=== PATIENT | female | born 1940 | race American Indian/Alaskan Native ===

== ENCOUNTER 2018-02-18 10:04 | Emergency (ER) | payer MEDICARE ==
[2018-02-18 10:50] LABS: Basophils # (Auto) 0.1 K/mm3 (0.0-0.1); Basophils % (Auto) 1.2 % (0.0-1.8); Eosinophils # (Auto) 0.2 K/mm3 (0.0-0.4); Eosinophils % (Auto) 3.7 % (0.0-4.3); Hematocrit 40.5 % (30.3-42.9); Hemoglobin 13.1 gm/dl (10.1-14.3); Lymphocytes # (Auto) 1.1 K/mm3 (1.2-5.4); Lymphocytes % (Auto) 21.8 % (13.4-35.0); Mean Corpuscular HGB Conc 33 % (30-34); Mean Corpuscular Hemoglobin 26 pg (28-32); Mean Corpuscular Volume 80 fl (79-97); Monocytes # (Auto) 0.6 K/mm3 (0.0-0.8); Monocytes % (Auto) 12.8 % (0.0-7.3); Platelet Count 220 K/mm3 (140-440); Red Blood Count 5.05 M/mm3 (3.65-5.03); Red Cell Distribution Width 15.2 % (13.2-15.2)
--- NOTE | 2018-02-18 10:56 | XRay Report ---
ROUTINE CHEST, TWO VIEWS: HISTORY: Right chest pain, right rib pain. The trachea, heart, mediastinal contour, lung cowan and bony thorax are unremarkable. No rib abnormality is detected on x-ray. IMPRESSION: Unremarkable chest x-ray.
[2018-02-18 11:03] LABS: BUN/Creatinine Ratio 18; Blood Urea Nitrogen 14 mg/dL (7-17); Calcium 9.5 mg/dL (8.4-10.2); Hemolysis Index 7
--- NOTE | 2018-02-18 12:40 | Emergency Department Report ---
ED Chest Pain HPI - General Chief Complaint: Chest Pain Stated Complaint: RIGHT SIDED CP Time Seen by Provider: 02/18/18 11:10 Source: patient Mode of arrival: Ambulatory Limitations: No Limitations - History of Present Illness Initial Comments: 77-year-old [place] Citizen female presents to the emergency department with a complaint of some intermittent right-sided chest pain that has since resolved. She says that this has been going on for the past 2 days. There are no known aggravating or alleviating factors. It is not associated with any shortness of breath, nausea, vomiting, back pain or diaphoresis. The patient went to see her primary care physician, Dr. Ashley Haro, regarding her symptoms but was told to come to the emergency department as she was signing in. She did not take anything for her symptoms prior to presentation. She is a former smoker. She has a history of non-Hodgkin's lymphoma, GERD, hypertension, hyperlipidemia. No recent travel or sick contacts at home. Severity scale (0 -10): 0 - Related Data Home Medications Medication Instructions Recorded Confirmed Last Taken Lisinopril/Hydrochlorothiazide 20 tab PO QDAY 08/06/13 08/06/13 08/05/13 [Zestoretic 20-12.5 mg] Omeprazole [Prilosec] 08/06/13 08/06/13 08/05/13 Pravastatin [Pravachol] 40 mg PO QHS 08/06/13 08/06/13 08/06/13 Allergies Allergy/AdvReac Type Severity Reaction Status Date / Time No Known Allergies Allergy Unverified 08/06/13 08:42 Heart Score - HEART Score History: Slightly suspicious EKG: Normal Age: > 65 Risk factors: 1-2 risk factors Troponin: < normal limit HEART Score: 3 - Critical Actions Critical Actions: 0-3 pts:0.9-1.7%risk of adverse cardiac event.Candidate for discharge ED Review of Systems ROS: Stated complaint: RIGHT SIDED CP Other details as noted in HPI Comment: All other systems reviewed and negative Constitutional: denies: chills, fever Eyes: denies: eye pain, eye discharge, vision change ENT: denies: ear pain, throat pain Respiratory: denies: cough, shortness of breath, wheezing Cardiovascular: chest pain. denies: palpitations Gastrointestinal: denies: abdominal pain, nausea, diarrhea Genitourinary: denies: urgency, dysuria, discharge Musculoskeletal: denies: back pain, joint swelling, arthralgia Skin: denies: rash, lesions Neurological: denies: headache, weakness, paresthesias ED Past Medical Hx - Past Medical History Previous Medical History?: Yes Hx Hypertension: Yes Hx GERD: Yes Hx of Cancer: Yes (Non Hodgkins Lymphoma) Additional medical history: high cholesterol - Surgical History Past Surgical History?: Yes Hx Cholecystectomy: Yes Additional Surgical History: x1, Hysterectomy - Social History Smoking Status: Former Smoker Substance Use Type: Alcohol, Prescribed - Medications Home Medications: Home Medications Medication Instructions Recorded Confirmed Last Taken Type Lisinopril/Hydrochlorothiazide 20 tab PO QDAY 08/06/13 08/06/13 08/05/13 History [Zestoretic 20-12.5 mg] Omeprazole [Prilosec] 08/06/13 08/06/13 08/05/13 History Pravastatin [Pravachol] 40 mg PO QHS 08/06/13 08/06/13 08/06/13 History ED Physical Exam - General Limitations: No Limitations - Other Other exam information: GENERAL: The patient is well-developed well-nourished. HENT: Normocephalic. Atraumatic. Patient has moist mucous membranes. EYES: Extraocular motions are intact. Pupils equal reactive to light bilaterally. NECK: Supple. Trachea is midline. CHEST/LUNGS: Clear to auscultation. There is no respiratory distress noted. HEART/CARDIOVASCULAR: Regular. There is no tachycardia. There is no murmur. ABDOMEN: Abdomen is soft, nontender. Patient has normal bowel sounds. There is no abdominal distention. SKIN: Skin is warm and dry. NEURO: The patient is awake, alert, and oriented. The patient is cooperative. The patient has no focal neurologic deficits. The patient has normal speech. MUSCULOSKELETAL: There is no tenderness or deformity. There is no limitation range of motion. There is no evidence of acute injury. ED Course Vital Signs 02/18/18 10:27 Temperature 98 F Pulse Rate 74 Respiratory 20 Rate Blood Pressure 142/91 O2 Sat by Pulse 98 Oximetry NIRMAL score - Nirmal Score Age > 65: (1) Yes Aspirin use within the Past 7 Days: (0) No 3 or more CAD Risk Factors: (0) No 2 or more Angina events in past 24 hrs: (1) Yes Known CAD with more than 50% Stenosis: (0) No Elevated Cardiac Markers: (0) No ST Deviation Greater than 0.5mm: (0) No NIRMAL Score: 2 ED Medical Decision Making - Lab Data Result diagrams: 02/18/18 10:36 02/18/18 10:36 - EKG Data -: EKG Interpreted by Me EKG shows normal: sinus rhythm, axis, intervals, QRS complexes, ST-T waves Rate: normal - EKG Data When compared to previous EKG there are: previous EKG unavailable Interpretation: normal EKG - Radiology Data Radiology results: report reviewed, image reviewed interpreted by me: Chest x-ray does not show any acute process. There are no pleural effusions, obvious pneumonia and there is no pneumothorax. CTA CHEST: HISTORY: chest pain. COMPARISON: none. TECHNIQUE: Helical CT in 1.25mm intervals following IV contrast. Pulmonary embolus protocol. Sagittal and coronal reformatted images. Rotational MIP images. FINDINGS: Contrast bolus is satisfactory. No pulmonary embolus is identified. Thyroid gland: Normal. Tracheobronchial tree: Normal. Esophagus: Normal. Heart: Normal. Pericardium: Normal. Mediastinum: Normal. Lung Nunez: normal. Pleural Spaces: Normal. Musculoskeletal: Mild scoliosis. IMPRESSION: No evidence for pulmonary embolus. Unremarkable CT chest with contrast. Transcribed By: TTR Dictated By: MARCELLE SHELTON JR, MD Electronically Authenticated By: MARCELLE SHELTON JR, MD Signed Date/Time: 02/18/18 1317 - Medical Decision Making Patient presents after a 2 day history of intermittent right-sided chest and rib pain. It has currently resolved. EKG does not show any signs of ST elevation VT, dysrhythmia or ischemia. Negative troponins 2. Chest x-ray does not show any acute process. She did have an elevated d-dimer so CT angiography of the chest was done that came back showing no signs of pulmonary embolism, dissection or any other acute process. She has been reevaluated multiple times over multiple hours and has remained asymptomatic. I spoke with [facility] heart cardiology who has arranged for her to have outpatient follow-up tomorrow at [address] Torre. All the labs, imaging and the plan has been discussed with the patient and she understands and agrees. - Differential Diagnosis VT, PE, Costochondritis, GERD, Pneumonia, Shingles Critical Care Time: No Critical care attestation.: If time is entered above; I have spent that time in minutes in the direct care of this critically ill patient, excluding procedure time. ED Disposition Clinical Impression: Chest pain Qualifiers: Chest pain type: unspecified Qualified Code(s): R07.9 - Chest pain, unspecified Disposition: DC-01 TO HOME OR SELFCARE Is pt being admited?: No Condition: Stable Instructions: Chest Pain (ED) Additional Instructions: He has been set up for an appointment to see Dr. Lemus at [facility] cardiology tomorrow at 1:45 PM. Otherwise, please follow up with your primary care doctor in the next few days. Return to the emergency department with any return of your chest pain or with any acute distress. Referrals: ASHLEY HARO MD [Primary Care Provider] - 3-5 Days THOMAS LEMUS MD [Staff Physician] - 02/19/18 1:45 pm (02/19/2018 @ 1:45PM) Time of Disposition: 13:43
--- NOTE | 2018-02-18 13:25 | Cat Scan Report ---
CTA CHEST: HISTORY: chest pain. COMPARISON: none. TECHNIQUE: Helical CT in 1.25mm intervals following IV contrast. Pulmonary embolus protocol. Sagittal and coronal reformatted images. Rotational MIP images. FINDINGS: Contrast bolus is satisfactory. No pulmonary embolus is identified. Thyroid gland: Normal. Tracheobronchial tree: Normal. Esophagus: Normal. Heart: Normal. Pericardium: Normal. Mediastinum: Normal. Lung Nunez: normal. Pleural Spaces: Normal. Musculoskeletal: Mild scoliosis. IMPRESSION: No evidence for pulmonary embolus. Unremarkable CT chest with contrast.
[2018-02-18 14:15] VITALS: BP 136/81
== END 2018-02-18 14:20 | disposition home or self-care (01) ==
LOC: ED 10:04
DX: R07.89 Other chest pain (principal); I10 Essential (primary) hypertension; K21.9 Gastro-esophageal reflux disease without esophagitis; E78.00 Pure hypercholesterolemia, unspecified; Z90.710 Acquired absence of both cervix and uterus; Z90.49 Acquired absence of other specified parts of digestive tract; Z87.891 Personal history of nicotine dependence
CPT/HCPCS: 36415; 71046; 71275; 80048; 84484; 85025; 85379; 93005; 93010; 99284; Q9967

== ENCOUNTER 2019-04-14 10:20 | Day surgery (SDC) | payer MEDICARE ==
[2019-04-14] MEDS ORDERED: VERSED IV NR (11:07)
[2019-04-14] MEDS ORDERED: ANCEF/STERILE WATER 2 GM/20 ML IV NR (12:00)
[2019-04-14] MEDS ORDERED: LACTATED RINGERS 1,000 ML IV SCH (12:00)
[2019-04-14] MEDS ORDERED: XYLOCAINE MPF 2% ONE (12:15)
[2019-04-14] MEDS ORDERED: ZOFRAN ONE (12:15)
[2019-04-14] MEDS ORDERED: SUBLIMAZE ONE (12:16)
[2019-04-14] MEDS ORDERED: DIPRIVAN 10 MG/ML IV ONE (12:16)
--- NOTE | 2019-04-14 13:28 | Post Operative Note ---
Date of procedure: 04/14/19 Pre-op diagnosis: heme irritative voidng Post-op diagnosis: same Findings: contracted bladder friable Procedure: cysto biopsies rpgs Anesthesia: GETA Surgeon: VICENTE FERNANDEZ Estimated blood loss: minimal Pathology: list (bladder) Specimen disposition: to lab Condition: stable Disposition: PACU
--- NOTE | 2019-04-14 13:29 | Discharge Summary ---
Short Stay Discharge Plan Activity: other (no straining ) Weight Bearing Status: Full Weight Bearing Diet: low fat, low cholesterol, low salt Special Instructions: other (inc fluids ) Durable Medical Equipment Needed Upon Discharge: other (home with farias ) Follow up with: ASHLEY RAMOS MD [Primary Care Provider] - 7 Days VICENTE FERNANDEZ MD [Staff Physician] - 7 Days
[2019-04-14] MEDS ORDERED: DILAUDID IV PRN (13:33)
--- NOTE | 2019-04-14 14:37 | Fluoroscopy Report ---
FLUOROSCOPY RETROGRADE UROGRAPHY: HISTORY: Hematuria. FINDINGS: Fluoroscopy was provided by radiology during retrograde urography by the urologist. 10 fluoroscopic images were captured. There is adequate filling of the ureters and intrarenal collecting systems with no filling defects or anatomic abnormalities identified. Please correlate with the procedural report if needed. IMPRESSION: Retrograde pyelograms within normal limits.
--- NOTE | 2019-04-14 15:43 | Operative Report ---
PREOPERATIVE DIAGNOSES: Irritative voiding symptoms, hematuria. POSTOPERATIVE DIAGNOSES: Severely contracted bladder, very friable glomerulations, bifid collecting system. PROCEDURE: Cystoscopy, biopsies, retrogrades, insertion of Grove. SURGEON: Jacob Sneed MD ANESTHESIA: General. FINDINGS: This is a woman with severe irritative voiding symptoms. She has had previous Hodgkin's and chemo and radiation. She now presents for treatment. DESCRIPTION OF PROCEDURE: The patient was brought to the operating room and placed on the operating table. Following induction of anesthesia, placed in lithotomy position, prepped and draped in usual sterile fashion. Cystourethroscopy showed a very contracted bladder. There were glomerulations just by the initial cystoscopy, it started oozing, especially right posterior lateral wall. Biopsies were obtained. There was a little friability at the bladder neck. A biopsy was obtained there too. Retrograde showed air bubbles right upper ureter, which drained; bifid system, which drained. The patient tolerated the procedure well. Grove catheter was left. After fulguration of the biopsy sites was carried out, brought to recovery in stable condition. JOB# [id number] HARI/GLENIS
--- NOTE | 2019-04-14 16:17 | Anesthesia Consultation ---
Anesthesia Consult and Med Hx - Airway Anesthetic Teeth Evaluation: Good ROM Head & Neck: Adequate Mental/Hyoid Distance: Adequate Mallampati Class: Class II Intubation Access Assessment: Good - Pulmonary Exam CTA: Yes - Cardiac Exam Cardiac Exam: RRR - Pre-Operative Health Status ASA Pre-Surgery Classification: ASA2 Proposed Anesthetic Plan: General - Pulmonary Hx Smoking: Yes (STOPPED X 40 YRS) Hx Sleep Apnea: No (ANKIT PREOP SCREEN LOW RISK.) - Cardiovascular System Hx Hypertension: Yes - Gastrointestinal Hx Gastroesophageal Reflux Disease: Yes - Other Systems Hx Cancer: Yes (NON-HODGKINS LYMPHOMA [place]=CHEMO 2008 , RADIATION 2016)
--- NOTE | 2019-04-14 16:17 | Anesthesia Day of Surgery ---
Anesthesia Day of Surgery - Day of Surgery Patient Examined: Yes Patient H&P Reviewed: Yes Patient is NPO: Yes
--- NOTE | 2019-04-14 16:18 | Post Anesthesia Evaluation ---
- Post Anesthesia Evaluation Patient Participated: Yes Airway Patent: Yes Stable Respiratory Function: Yes Nausea/Vomiting: No Temp > 96.8F: Yes Pain Manageable: Yes Adequeate Hydration: Yes Anesthesia Complications: Yes Block Receding Appropriately: Not Applicable Patient on Ventilator: No
[2019-04-14 18:32] VITALS: BP 132/65
== END 2019-04-14 14:30 | disposition home or self-care (01) ==
LOC: OR 10:20
PROVIDERS: ATTEND Urology
DX: R31.9 Hematuria, unspecified (principal); R39.9 Unspecified symptoms and signs involving the genitourinary system; Z79.899 Other long term (current) drug therapy; Z87.891 Personal history of nicotine dependence; Z98.49 Cataract extraction status, unspecified eye; E78.00 Pure hypercholesterolemia, unspecified; I10 Essential (primary) hypertension; K21.9 Gastro-esophageal reflux disease without esophagitis; Z90.49 Acquired absence of other specified parts of digestive tract; Z90.710 Acquired absence of both cervix and uterus; M19.90 Unspecified osteoarthritis, unspecified site; Z85.89 Personal history of malignant neoplasm of other organs and systems
CPT/HCPCS: 52204; 74420; 82803; 82962; 88305; C1758; J0690; J1170; J2250; J2405; J2704; J3010; J7120; Q9967

== ENCOUNTER 2019-09-07 08:58 | Day surgery (SDC) | payer MEDICARE ==
--- NOTE | 2019-09-07 09:40 | Anesthesia Day of Surgery ---
Anesthesia Day of Surgery - Day of Surgery Patient Examined: Yes Patient H&P Reviewed: Yes Patient is NPO: Yes
--- NOTE | 2019-09-07 09:40 | Anesthesia Consultation ---
Anesthesia Consult and Med Hx Date of service: 09/07/19 - Airway Anesthetic Teeth Evaluation: Good ROM Head & Neck: Adequate Mental/Hyoid Distance: Adequate Mallampati Class: Class II Intubation Access Assessment: Good - Pulmonary Exam CTA: Yes - Cardiac Exam Cardiac Exam: RRR - Pre-Operative Health Status ASA Pre-Surgery Classification: ASA3 Proposed Anesthetic Plan: General - Pulmonary Hx Smoking: Yes (STOPPED X 40 YRS) Hx Sleep Apnea: No (ANKIT PREOP SCREEN LOW RISK.) - Cardiovascular System Hx Hypertension: Yes - Gastrointestinal Hx Gastroesophageal Reflux Disease: Yes - Other Systems Hx Cancer: Yes (NON-HODGKINS LYMPHOMA [place]=CHEMO 2008 , RADIATION 2016)
[2019-09-07] MEDS ORDERED: ONDANSETRON 4 MG/2 ML INJ IV PRN (09:41)
[2019-09-07] MEDS ORDERED: HYDROmorphone 1 MG/1 ML INJ IV PRN (09:41)
[2019-09-07] MEDS ORDERED: ceFAZolin/STERILE WATER 2 GM/20 ML SYRINGE IV NR (10:00)
[2019-09-07] MEDS ORDERED: MIDAZOLAM 2 MG/2 ML INJ IV NR (10:00)
[2019-09-07] MEDS ORDERED: LACTATED RINGERS 1,000 ML IV SCH (10:00)
--- NOTE | 2019-09-07 11:03 | Post Operative Note ---
Date of procedure: 09/07/19 Pre-op diagnosis: bladder lesions Post-op diagnosis: same Findings: same Procedure: cysto bx Anesthesia: GETA Surgeon: VICENTE FERNANDEZ Estimated blood loss: none Pathology: list (bladder) Specimen disposition: to lab Condition: stable
--- NOTE | 2019-09-07 11:04 | Discharge Summary ---
Short Stay Discharge Plan Activity: other (no straining ) Weight Bearing Status: Full Weight Bearing Diet: regular, low salt Special Instructions: other (inc fluids ) Durable Medical Equipment Needed Upon Discharge: other (farias cath care ) Follow up with: ASHLEY RAMOS MD [Primary Care Provider] - 7 Days VICENTE FERNANDEZ MD [Staff Physician] - 09/09/19
[2019-09-07] MEDS ORDERED: LIDOCAINE MPF (2%) 20 MG/1 ML VIAL 5 ML ONE (11:06)
[2019-09-07] MEDS ORDERED: PROPOFOL 200 MG/20 ML VIAL IV ONE (11:06)
[2019-09-07] MEDS ORDERED: fentaNYL 100 MCG/2 ML INJ ONE (11:06)
[2019-09-07] MEDS ORDERED: WATER FOR IRRIG STERILE 2000 ML IR ONE (11:25)
[2019-09-07] MEDS ORDERED: WATER FOR IRRIG STERILE 1,500 ML BOTTLE IR ONE (11:25)
[2019-09-07] MEDS ORDERED: ONDANSETRON 4 MG/2 ML INJ ONE (11:55)
[2019-09-07] MEDS ORDERED: LACTATED RINGERS 1,000 ML ONE (12:03)
[2019-09-07 12:41] VITALS: BP 131/70
--- NOTE | 2019-09-07 16:18 | XRay Report ---
ABDOMEN 1 VIEW(S) INDICATION / CLINICAL INFORMATION: DYSURIA. COMPARISON: None available. FINDINGS: TUBES / LINES: None. BOWEL GAS PATTERN: No significant abnormality. FREE AIR / EXTRALUMINAL GAS: None seen. ADDITIONAL FINDINGS: 2 seconds of fluoroscopy time was utilized during bladder biopsy by urology. 1 i mage of the abdomen is presented. IMPRESSION: No significant abnormality. Signer Name: Jerardo Antonio Jr, MD Signed: 09/07/2019 4:14 PM Workstation Name: [id number]
--- NOTE | 2019-09-08 02:29 | Operative Report ---
PREOPERATIVE DIAGNOSIS: Bladder lesions? previous treatment effect. POSTOPERATIVE DIAGNOSIS: Bladder lesions? previous treatment effect. PROCEDURE: Cystoscopy, excision of bladder lesion. SURGEON: Jacob Sneed MD ANESTHESIA: General. FINDINGS: This is a woman who has had previous bladder lesions. They were sent out for possible lymphoproliferative disease with negative, now presents for followup. DESCRIPTION OF PROCEDURE: The patient was brought to the operating room and placed operating table. Following induction of anesthesia, placed in lithotomy position, prepped and draped in usual sterile fashion. Vaginal introitus was quite scarred. The urethra was slightly retracted. Bladder was entered and showed the lesion posterior wall. These were excised and cauterized. There was clear efflux from both orifices. The patient tolerated the procedure well. A few areas fulgurated. No bleeding. Catheter was left. Family notified, brought to recovery in stable condition. JOB# [id number] HARI/GLENIS
--- NOTE | 2019-09-08 12:50 | Post Anesthesia Evaluation ---
- Post Anesthesia Evaluation Patient Participated: Yes Airway Patent: Yes Stable Respiratory Function: Yes Nausea/Vomiting: No Temp > 96.8F: Yes Pain Manageable: Yes Adequeate Hydration: Yes Anesthesia Complications: No Block Receding Appropriately: Not Applicable Patient on Ventilator: No
== END 2019-09-07 13:25 | disposition home or self-care (01) ==
LOC: OR 08:58
PROVIDERS: ATTEND Urology
DX: N32.89 Other specified disorders of bladder (principal); E78.00 Pure hypercholesterolemia, unspecified; I10 Essential (primary) hypertension; K21.9 Gastro-esophageal reflux disease without esophagitis; M19.90 Unspecified osteoarthritis, unspecified site; Z79.899 Other long term (current) drug therapy; Z87.891 Personal history of nicotine dependence; Z98.49 Cataract extraction status, unspecified eye; Z90.49 Acquired absence of other specified parts of digestive tract; Z90.710 Acquired absence of both cervix and uterus; Z85.89 Personal history of malignant neoplasm of other organs and systems; Z98.890 Other specified postprocedural states
CPT/HCPCS: 36415; 52224; 74018; 82962; 84132; 88305; 88342; A4217; C1758; J0690; J2250; J2405; J2704; J3010; J7120; Q9967; 88341

== ENCOUNTER 2020-02-15 09:38 | Day surgery (SDC) | payer MEDICARE ==
[2020-02-15] MEDS ORDERED: ceFAZolin/STERILE WATER 2 GM/20 ML SYRINGE IV NR (10:30)
[2020-02-15] MEDS ORDERED: fentaNYL 100 MCG/2 ML INJ IV PRN (11:05)
[2020-02-15] MEDS ORDERED: MIDAZOLAM 2 MG/2 ML INJ IV ONE (11:12)
--- NOTE | 2020-02-15 11:14 | Anesthesia Consultation ---
Anesthesia Consult and Med Hx Date of service: 02/15/20 - Airway Anesthetic Teeth Evaluation: Good ROM Head & Neck: Adequate Mental/Hyoid Distance: Adequate Mallampati Class: Class I Intubation Access Assessment: Good - Pulmonary Exam CTA: Yes - Cardiac Exam Cardiac Exam: RRR - Pre-Operative Health Status ASA Pre-Surgery Classification: ASA2 Proposed Anesthetic Plan: General - Pulmonary Hx Smoking: Yes (former smoker quit 40yrs ago) Hx Respiratory Symptoms: No Hx Sleep Apnea: No (ANKIT PREOP SCREEN LOW RISK.) - Cardiovascular System Hx Hypertension: Yes (took antihypertensives last night) Hx Heart Attack/AMI: No Hx Percutaneous Transluminal Coronary Angioplasty (PTCA): No Hx Cardia Arrhythmia: No - Central Nervous System CVA: No Hx Psychiatric Problems: No - Gastrointestinal Hx Gastroesophageal Reflux Disease: Yes (diet controlled; asymptomatic today) - Endocrine Hx Renal Disease: No Hx Liver Disease: No Hx Non-Insulin Dependent Diabetes: Yes (pre-DM) Hx Thyroid Disease: No - Other Systems Hx Cancer: Yes (prior hx non-Hodgkin's lymphoma ) - Additional Comments Anesthesia Medical History Comments: No hx anesthetic complications. Will give anxiolytic as patient complains of nervousness.
--- NOTE | 2020-02-15 11:15 | Anesthesia Day of Surgery ---
Anesthesia Day of Surgery - Day of Surgery Patient Examined: Yes Patient H&P Reviewed: Yes Patient is NPO: Yes
[2020-02-15] MEDS ORDERED: WATER FOR IRRIG STERILE 2000 ML IR ONE (11:38)
[2020-02-15] MEDS ORDERED: ONDANSETRON 4 MG/2 ML INJ ONE (11:39)
[2020-02-15] MEDS ORDERED: LIDOCAINE MPF (2%) 20 MG/1 ML VIAL 5 ML ONE (11:39)
[2020-02-15] MEDS ORDERED: fentaNYL 100 MCG/2 ML INJ ONE (11:39)
[2020-02-15] MEDS ORDERED: propofoL 200 MG/20 ML VIAL IV ONE (11:39)
[2020-02-15] MEDS ORDERED: WATER FOR IRRIG STERILE 1,500 ML BOTTLE IR ONE (11:39)
[2020-02-15] MEDS ORDERED: LACTATED RINGERS 1,000 ML IV SCH (12:00)
--- NOTE | 2020-02-15 12:06 | Post Operative Note ---
Date of procedure: 02/15/20 Pre-op diagnosis: hematuria Post-op diagnosis: same Findings: lesions Procedure: cysto bx Anesthesia: GETA Surgeon: VICENTE FERNANDEZ Estimated blood loss: none Pathology: list (bladder) Specimen disposition: to lab Condition: stable Disposition: PACU
--- NOTE | 2020-02-15 12:07 | Discharge Summary ---
Short Stay Discharge Plan Activity: other (no straining ) Weight Bearing Status: Full Weight Bearing Diet: low fat, low cholesterol, low salt Special Instructions: other (inc fluids ) Follow up with: ASHLEY RAMOS MD [Primary Care Provider] - 7 Days VICENTE FERNANDEZ MD [Staff Physician] - 14 Days
--- NOTE | 2020-02-15 12:52 | Operative Report ---
PREOPERATIVE DIAGNOSES: Hematuria and bladder lesion. POSTOPERATIVE DIAGNOSES: Hematuria and bladder lesion. PROCEDURE: Cystoscopy, biopsies, fulguration. SURGEON: Dr. Sneed. ANESTHESIA: General. FINDINGS: This is a woman with a history of lymphoma with lymphocytic infiltrates and intermittent hematuria. She now presents for cystoscopy. DESCRIPTION OF PROCEDURE: The patient was brought to the operating room and placed on the operating table. Following induction of anesthesia, placed in lithotomy position, prepped and draped in usual sterile fashion. Cystourethroscopy showed some erythema of posterior wall, which was biopsied. No active bleeding at this point. Retrogrades were not repeated. The patient tolerated the procedure well and brought to recovery room in stable condition. JOB# [id number] HARI/GLENIS
[2020-02-15 13:36] VITALS: BP 134/68
== END 2020-02-15 13:35 | disposition home or self-care (01) ==
LOC: OR 09:38
PROVIDERS: ATTEND Urology
DX: N32.89 Other specified disorders of bladder (principal); R31.9 Hematuria, unspecified; E78.00 Pure hypercholesterolemia, unspecified; I10 Essential (primary) hypertension; K21.9 Gastro-esophageal reflux disease without esophagitis; M19.90 Unspecified osteoarthritis, unspecified site; E11.9 Type 2 diabetes mellitus without complications; Z85.89 Personal history of malignant neoplasm of other organs and systems; Z79.899 Other long term (current) drug therapy; Z87.891 Personal history of nicotine dependence; Z98.49 Cataract extraction status, unspecified eye; Z90.49 Acquired absence of other specified parts of digestive tract; Z90.710 Acquired absence of both cervix and uterus; Z98.890 Other specified postprocedural states
CPT/HCPCS: 36415; 52204; 82962; 88305; A4217; J0690; J2250; J2405; J2704; J3010; J7120